=== PATIENT | male | born 1995 | race African-American/Black ===

== ENCOUNTER 2017-10-21 22:37 | Emergency (ER) | payer OTHER ==
[~2017-10-21] VITALS: Ht 200.7 cm; Wt 97.5 kg
[~2017-10-21 22:37] MED LIST: IBUPROFEN 600600 M1 PO; NOHOMEMEDICATIONS
[2017-10-22 00:32] VITALS: BP 150/80
== END 2017-10-22 01:00 | disposition home or self-care (01) ==
LOC: ER 22:37
DX: M25.561 Pain in right knee (principal)